=== PATIENT | female | born 1955 | race Caucasian/White ===

== ENCOUNTER 2020-10-19 09:05 | Emergency (ER) | payer BC, MEDICARE ==
[~2020-10-19] VITALS: Ht 162.6 cm; Wt 59.9 kg
--- NOTE | 2020-10-19 09:08 | NUR ---
MD at bedside for assessment, Patient complaints of shortness of breath and anxiety
--- NOTE | 2020-10-19 09:38 | NUR ---
survey field technician Lauren noted at bedside for lab draw at this time
[2020-10-19 09:47] LABS: HEMATOCRIT 38.7 % (31.2-41.9); MEAN CORPUSCULAR HEMOGLOBIN 31.2 uug (24.7-32.8); MEAN CORPUSCULAR VOLUME 92.6 fL (75.5-95.3); PLATELET COUNT (AUTO) 409 K/uL (179-408)
[2020-10-19 09:51] LABS: CREATININE 0.8 mg/dL (0.6-1.3); POTASSIUM 3.8 mmol/L (3.5-5.1)
--- NOTE | 2020-10-19 10:00 | NUR ---
Chest X-ray taken at this time
--- NOTE | 2020-10-19 10:15 | NUR ---
Patient discharged to home in stable condition. No signs of acute distress, son noted at bedside, took all belongings. Written and verbal after care instructions given. Patient verbalizes understanding of instructions. Stressed follow up or return to ER for worsening s/s.
[2020-10-19 10:16] VITALS: BP 159/88
== END 2020-10-19 10:18 | disposition home or self-care (01) ==
LOC: ER 09:07
DX: R06.00 Dyspnea, unspecified (principal)
CPT/HCPCS: 36415; 70030-TC; 71045; 85025; 93005; A4663

== ENCOUNTER 2024-02-10 22:26 | Inpatient (IN) | payer MEDICARE ==
[~2024-02-10] VITALS: Ht 160 cm; Wt 60.8 kg
[2024-02-10] MEDS ORDERED: GLUCAGON,HUMAN RECOMBINANT 1 MG VIAL ONE (23:03)
[2024-02-10] MEDS: GLUCAGON,HUMAN RECOMBINANT 1 MG VIAL IVP ONE (23:12)
[2024-02-10] MEDS ORDERED: ONDANSETRON 4 MG/2 ML VIAL ONE (23:13)
[2024-02-10] MEDS: ONDANSETRON 4 MG/2 ML VIAL IV ONE (23:19)
[2024-02-10 23:21] LABS: BASOPHILS % (AUTO) 0.2 % (0.0-2.0); EOSINOPHILS # (AUTO) 0.1 K/uL (0.0-0.7); EOSINOPHILS % (AUTO) 0.4 % (0.0-7.0); HEMATOCRIT 39.8 % (31.2-41.9); HEMOGLOBIN 13.5 g/dL (10.9-14.3); LYMPHOCYTES # (AUTO) 1.8 K/uL (0.8-4.8); LYMPHOCYTES % (AUTO) 12.5 % (20.5-51.5); MEAN CORPUSCULAR HEMOGLOBIN 31.5 uug (24.7-32.8); MEAN CORPUSCULAR HGB CONC 34 g/dL (32.3-35.6); MEAN CORPUSCULAR VOLUME 92.7 fL (75.5-95.3); MONOCYTES # (AUTO) 0.7 K/uL (0.1-1.30); MONOCYTES % (AUTO) 4.7 % (0.0-11.0); NEUTROPHILS % (AUTO) 82.2 % (38.5-71.5); PLATELET COUNT (AUTO) 308 K/uL (179-408); RED BLOOD CELL COUNT(AUTO) 4.29 MIL/uL (3.63-4.92); RED CELL DISTRIBUTION WIDTH 13.3 % (12.3-17.7); WHITE BLOOD COUNT (AUTO) 14.6 K/uL (3.8-11.8)
[2024-02-10] MEDS ORDERED: METOCLOPRAMIDE HCL 10 MG/2 ML VIAL ONE (23:34)
[2024-02-10] MEDS: METOCLOPRAMIDE HCL 10 MG/2 ML VIAL IV ONE (23:35)
[2024-02-10] MEDS: IV NORMAL SALINE 1000 ML BAG IV ONE (23:35)
[2024-02-10 23:42] LABS: ALANINE AMINOTRANSFERASE 12 U/L (14-59); ALBUMIN 4.4 g/dL (3.4-5.0); ALKALINE PHOSPHATASE 47 U/L (50-136); ASPARTATE AMINOTRANSFERASE 11 U/L (15-37); BILIRUBIN,DIRECT 0.2 mg/dL (0.0-0.2); BILIRUBIN,TOTAL 0.6 mg/dL (0.2-1.0); CALCIUM 9.8 mg/dL (8.5-10.1); CARBON DIOXIDE 25 mmol/L (21-32); CHLORIDE 107 mmol/L (98-107); CREATININE 0.8 mg/dL (0.6-1.3); GLUCOSE 168 mg/dL (74-106); POTASSIUM 3.3 mmol/L (3.5-5.1); SODIUM SERUM 146 mmol/L (136-145); TOTAL PROTEIN, SERUM 7.7 g/dL (6.4-8.2); UREA NITROGEN, BLOOD 27 mg/dL (7-18)
[2024-02-11] MEDS ORDERED: MORPHINE SULFATE 4 MG/1 ML DISP.SYRIN ONE (00:04)
[2024-02-11] MEDS ORDERED: ONDANSETRON 4 MG/2 ML VIAL ONE (00:04)
[2024-02-11] MEDS: IV 0.9% SODIUM CHLORID+ 20 KCL 1,000 ML IV ONE (00:15)
[2024-02-11] MEDS: ONDANSETRON 4 MG/2 ML VIAL IV ONE (00:18)
[2024-02-11] MEDS: MORPHINE SULFATE 4 MG/1 ML DISP.SYRIN IV ONE (00:18)
[2024-02-11] MEDS ORDERED: AMLO-212 PO (00:27)
[2024-02-11] MEDS ORDERED: ROSU5TAB PO (00:27)
[2024-02-11] MEDS ORDERED: IV 1/2 NS + KCL 20 MEQ BAG 1,000 ML IV PRN (01:00)
[2024-02-11] MEDS ORDERED: REMEDY ESSENTIAL ZINC PASTE 113 GM TP PRN (01:00)
[2024-02-11] MEDS ORDERED: IV 0.9% SODIUM CHLORID+ 20 KCL 1,000 ML ONE (01:15)
[2024-02-11] MEDS ORDERED: METOCLOPRAMIDE HCL 10 MG/2 ML VIAL IV PRN (02:45)
[2024-02-11] MEDS ORDERED: MORPHINE SULFATE 2 MG/1 ML DISP.SYRIN IV PRN (02:45)
[2024-02-11 03:43] VITALS: BP 121/73; TEMP 97.6; O2SAT 100
[2024-02-11 06:14] VITALS: BP 126/67; TEMP 97.6; O2SAT 100
[2024-02-11] MEDS: ONDANSETRON 4 MG/2 ML VIAL IV PRN (06:21)
[2024-02-11 06:47] LABS: BASOPHILS % (AUTO) 0.2 % (0.0-2.0); HEMOGLOBIN 12.5 g/dL (10.9-14.3); LYMPHOCYTES % (AUTO) 11.1 % (20.5-51.5); MEAN CORPUSCULAR HEMOGLOBIN 32.2 uug (24.7-32.8); MEAN CORPUSCULAR HGB CONC 35 g/dL (32.3-35.6); MEAN CORPUSCULAR VOLUME 92.6 fL (75.5-95.3); MONOCYTES # (AUTO) 0.3 K/uL (0.1-1.30); MONOCYTES % (AUTO) 3.1 % (0.0-11.0); NEUTROPHILS # (AUTO) 8.1 K/uL (1.8-8.9); NEUTROPHILS % (AUTO) 85.6 % (38.5-71.5); PLATELET COUNT (AUTO) 288 K/uL (179-408); RED BLOOD CELL COUNT(AUTO) 3.89 MIL/uL (3.63-4.92); RED CELL DISTRIBUTION WIDTH 13.4 % (12.3-17.7); WHITE BLOOD COUNT (AUTO) 9.4 K/uL (3.8-11.8)
[2024-02-11 07:10] LABS: ALBUMIN 3.6 g/dL (3.4-5.0); BILIRUBIN,DIRECT 0.2 mg/dL (0.0-0.2); BILIRUBIN,TOTAL 0.6 mg/dL (0.2-1.0); CREATININE 0.6 mg/dL (0.6-1.3); MAGNESIUM 1.9 mg/dL (1.8-2.4); PHOSPHOROUS 3.5 mg/dL (2.5-4.9); POTASSIUM 3.9 mmol/L (3.5-5.1); TOTAL PROTEIN, SERUM 6.8 g/dL (6.4-8.2)
[2024-02-11 07:11] LABS: DIFFERENTIAL COMMENT 1
[2024-02-11] MEDS: PANTOPRAZOLE SODIUM 40 MG VIAL IV SCH (08:27)
[2024-02-11] MEDS: METOCLOPRAMIDE HCL 10 MG/2 ML VIAL IV PRN (09:09)
[2024-02-11] MEDS: POTASSIUM CHLORIDE 20 MEQ in IV D5 1/2 NS 1000 ML 1,000 ML IV PRN (11:38)
[2024-02-11 12:00] VITALS: BP 122/70; TEMP 97.4; O2SAT 99
[2024-02-11 16:00] VITALS: BP 114/65; TEMP 98.4; O2SAT 95
[2024-02-11] MEDS ORDERED: PANTOPRAZOLE SODIUM 40 MG VIAL IV SCH (16:15)
[2024-02-11 18:30] VITALS: TEMP 98.1
[2024-02-11] MEDS ORDERED: ESOM40CA PO (19:18)
== END 2024-02-11 20:05 | disposition home or self-care (01) | DRG 395 ==
LOC: ER 22:30 → MEDSURG3 02-11 00:29
PROVIDERS: ADMIT Nurse Practitioner Family; ATTEND Internal Medicine
PROC: 0D738ZZ Dilation of Lower Esophagus, Via Natural or Artificial Opening Endoscopic (ICD-10-PCS; principal; 2024-02-11)
DX: T18.198A Other foreign object in esophagus causing other injury, initial encounter (principal); W44.8XXA Other foreign body entering into or through a natural orifice, initial encounter; Y92.019 Unspecified place in single-family (private) house as the place of occurrence of the external cause; E04.1 Nontoxic single thyroid nodule; R13.10 Dysphagia, unspecified; K22.2 Esophageal obstruction; K29.70 Gastritis, unspecified, without bleeding; D72.829 Elevated white blood cell count, unspecified; E78.5 Hyperlipidemia, unspecified; E87.6 Hypokalemia; R73.9 Hyperglycemia, unspecified; Z79.899 Other long term (current) drug therapy; K21.9 Gastro-esophageal reflux disease without esophagitis; M50.30 Other cervical disc degeneration, unspecified cervical region; I10 Essential (primary) hypertension
CPT/HCPCS: 36415; 70490; 71045; 71250; 83735; 84100; 84484; 85025; 85730; C1726; G0378; J1610; J2270; J2405; J2470; J2765; J3480; J3490; J7040